=== PATIENT | male | born 1960 | race Native Hawaiian/Other Pacific Islander ===

== ENCOUNTER 2018-08-07 11:07 | Day surgery (SDC) | payer OTHER | END 2018-08-07 14:50 | disposition home or self-care (01) | LOC: OR 11:07 | PROC: 0DBM8ZZ Excision of Descending Colon, Via Natural or Artificial Opening Endoscopic (ICD-10-PCS; principal; 2018-08-07) | PROC: 0DBN8ZZ Excision of Sigmoid Colon, Via Natural or Artificial Opening Endoscopic (ICD-10-PCS; 2018-08-07) | PROC: 0DBL8ZZ Excision of Transverse Colon, Via Natural or Artificial Opening Endoscopic (ICD-10-PCS; 2018-08-07) | DX: K63.5 Polyp of colon (principal); D12.4 Benign neoplasm of descending colon; D12.3 Benign neoplasm of transverse colon; K64.8 Other hemorrhoids; Z12.11 Encounter for screening for malignant neoplasm of colon; K92.1 Melena | CPT/HCPCS: J2704 ==

== ENCOUNTER 2018-09-13 08:57 | Outpatient (CLI) | payer OTHER | END 2018-09-13 22:39 | disposition home or self-care (01) | LOC: CT 08:57 | DX: R91.1 Solitary pulmonary nodule (principal) ==